=== PATIENT | male | born 1980 | race Caucasian/White ===

== ENCOUNTER 2024-06-12 07:43 | Day surgery (SDC) | payer BC ==
[~2024-06-12 07:43] MED LIST: Propofol 200 MG/20 ML SDV ONE; Sodium Chloride 0.9% 10 ML Syringe FLUSH PRN; Sodium Chloride 0.9% 10 ML Syringe FLUSH SCH
[2024-06-12] MEDS: Lactated Ringers 1,000 ML IV SCH (08:00)
[2024-06-12] MEDS ORDERED: Propofol 200 MG/20 ML SDV ONE (08:16)
== END 2024-06-12 09:40 | disposition home or self-care (01) ==
LOC: JD.SDS 07:43 → MERGE 09:00 → JD.SDS 09:40
PROVIDERS: ATTEND Surgery
DX: D12.5 Benign neoplasm of sigmoid colon (principal); K64.4 Residual hemorrhoidal skin tags; K64.0 First degree hemorrhoids
CPT/HCPCS: 45380; J2704; J7120; 00811